=== PATIENT | male | born 2000 | race Caucasian/White ===

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

== ENCOUNTER 2023-10-31 12:45 | Emergency (ER) | payer OTHER | END 2023-10-31 14:39 | disposition home or self-care (01) | LOC: LB.ED 12:45 | DX: L02.212 Cutaneous abscess of back [any part, except buttock and flank] (principal); F17.210 Nicotine dependence, cigarettes, uncomplicated; I10 Essential (primary) hypertension; E03.9 Hypothyroidism, unspecified | CPT/HCPCS: 99283 ==

== ENCOUNTER 2024-12-26 07:08 | Emergency (ER) | payer OTHER ==
[2024-12-26] MEDS: Sodium Chloride 0.9% 10 ML Syringe FLUSH PRN (07:15)
[2024-12-26] MEDS: Sodium Chloride 0.9% 1,000 ML IV ONE (07:29)
[2024-12-26 07:42] LABS: BASOPHILS ABSOLUTE AUTO 0.03 K/uL (0.02-0.10); BASOPHILS PERCENT AUTO 0.4 % (0.0-0.5); EOSINOPHILS ABSOLUTE AUTO 0.01 K/uL (0.04-0.40); EOSINOPHILS PERCENT AUTO 0.1 % (1.0-5.0); HEMATOCRIT 44.2 % (40.0-54.0); HEMOGLOBIN 14.6 g/dL (13.0-18.0); LYMPHOCYTES ABSOLUTE AUTO 1.88 K/uL (1.50-4.00); LYMPHOCYTES PERCENT AUTO 23.4 % (20.0-40.0); MEAN CORPUSCULAR HEMOGLOBIN 28.8 pg (27.0-32.0); MEAN CORPUSCULAR VOLUME 87 fL (76-96); MEAN PLATELET VOLUME 10.4 fL (6.0-10.0); MONOCYTES ABSOLUTE AUTO 0.77 K/uL (0.20-0.80); MONOCYTES PERCENT AUTO 9.6 % (3.0-10.0); NEUTROPHILS ABSOLUTE AUTO 5.34 K/uL (2.00-7.50); NEUTROPHILS PERCENT AUTO 66.5 % (45.0-70.0); PLATELET COUNT,PLT 201 K/uL (150-400); RED BLOOD CELL COUNT 5.07 M/uL (4.50-6.50); RED CELL DISTRIBUTION WIDTH 14.5 % (11.0-16.0)
[2024-12-26 07:53] LABS: ANION GAP 14.8 mmol/L (5.0-15.0); BUN/CREATININE RATIO 15.2 (6-25); CALCIUM 8.5 mg/dL (8.5-10.1); CREATININE 0.92 mg/dL (0.70-1.30); EST CRCL DRUG DOSING (CG) 145.19 mL/min; POTASSIUM,K 3.8 mmol/L (3.5-5.1)
[2024-12-26 08:20] LABS: INFLUENZA A NAA POSITIVE (NEGATIVE); INFLUENZA B NAA NEGATIVE (NEGATIVE); RESPIRATORY SYNCYTIAL VIR NAA NEGATIVE (NEGATIVE)
[2024-12-26 08:34] VITALS: BP 136/63; PULSE 95
[2024-12-26 08:37] LABS: CORONAVIRUS COVID-19 NAA NEGATIVE (NEGATIVE)
== END 2024-12-26 08:45 | disposition home or self-care (01) ==
LOC: LB.ED 07:08
DX: J10.1 Influenza due to other identified influenza virus with other respiratory manifestations (principal); I10 Essential (primary) hypertension; E03.9 Hypothyroidism, unspecified; Z79.890 Hormone replacement therapy; Z79.899 Other long term (current) drug therapy
CPT/HCPCS: 0241U; 36415; 80048; 85025; 96360; 99284-25; J7030